=== PATIENT | male | born 1985 | race Caucasian/White ===

== ENCOUNTER 2020-06-28 07:35 | Day surgery (SDC) | payer BC ==
[~2020-06-28] VITALS: Ht 182.9 cm; Wt 73.9 kg
--- NOTE | ~2020-06-28 | O ---
[address] [address] OPERATIVE REPORT Name: JULIEN CHUNG Room #: 150-3 [facility] M.R.#: [id number] Admission: 06/28/20 Attend Phys: Asher Rodriguez MD Discharge: Date of : 85 Report #: [id number] THIS REPORT FOR: cc: Hipolito Johnson MD, Troy A. MD McCabe,Asher Aragon MD ~ DOC #: [id number] Asher Rodriguez MD DATE OF SERVICE: 06/28/2020 SERVICE: Orthopedics. FACILITY: [facility]. SURGEON: Asher Rodriguez MD CRIB ATTENDANT: Merle Houston NP PREOPERATIVE DIAGNOSES: 1. Right knee pain. 2. Right knee loose body. 3. Right knee lateral meniscus tear. POSTOPERATIVE DIAGNOSES: 1. Right knee pain. 2. Right knee loose body. 3. Right knee lateral meniscus tear. PROCEDURE PERFORMED: 1. Right knee arthroscopic loose body removal. 2. Right knee arthroscopic partial lateral meniscectomy. COMPLICATIONS: None. DRAINS: None. SPECIMENS: None. ANESTHESIA: General with regional. FINDINGS: 1. Intact medial compartment. 2. Mild chondromalacia of the patellofemoral joint with central partial thickness ridge that was in line with the large loose body located in the anterior aspect of the knee. 3. Large loose body approximately 22 x 12 mm in size with a secondary loose [address] [address] OPERATIVE REPORT Name: JULIEN CHUNG Room #: 150-3 [facility].#: [id number] Admission: 06/28/20 Attend Phys: Asher Rodriguez MD Discharge: Date of : 85 Report #: [id number] body approximately 7 x 5 mm in diameter removed from the anterior compartment of knee at the base of the anterior cruciate ligament. 4. Anterior horn lateral meniscus tear, treated with partial lateral meniscectomy after excision of the loose body. 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 The MRI indicated that this loose body was contained within the retropatellar fat pad, but in fact, at the time of arthroscopy was confirmed to be outside of the fat pad and was within the intra-articular space and was mobile. There was a small stalk of soft tissue attaching the loose body to the anterior horn of the meniscus. Because he had failed conservative measures, he was indicated for surgical treatment. Risks, benefits, alternatives and indications for surgery were discussed with him. Risks include but not limited to pain, bleeding, infection, injury to nerves or blood vessels, persistent pain despite surgical intervention, failure of any repair, progression of preexisting chondral injury, stiffness, need for further surgery as well as complications related to anesthesia. Despite the risks, he wished to proceed. PROCEDURE IN DETAIL: After right lower extremity was correctly identified as the operative extremity, the patient was taken to the operating room where general anesthesia was induced without complications. He was padded appropriately. Prophylactic antibiotics were administered at appropriate time. Tourniquet was applied to right leg. Right lower extremity was then prepped and draped in standard sterile fashion. A timeout procedure was performed. Esmarch were used, tourniquet inflated to 250 mmHg. Standard anterolateral viewing portal was established followed by an anteromedial working portal. Diagnostic arthroscopy was performed. The above findings were noted. There was no chondroplasty required to the patellofemoral joint. There was some synovitis anteriorly. This was resected with a shaver. The loose body was easily visualized. Upon placement of the knee into the anterior compartment of the knee. Anteromedial portal was established in a typical fashion. The medial compartment was normal. The meniscus was stable. There was no articular cartilage pathology. The biter and the shaver were used to dissect the soft tissue stalk off of the loose body where it adhered to the base of the ACL graft, which was intact as well as the anterior horn of his lateral meniscus. After this was completed, a grasper was used to remove the loose body in 1 piece and the medial incision was enlarged to allow delivery of the loose body. There was a secondary loose body more posterior and this was removed second and then we proceeded with debridement of the tissue in its location. The anterior horn of the lateral meniscus was attaching in just directly below the loose body and there was fraying and involvement of the root attachment anteriorly. The shaver was used to complete the partial lateral meniscectomy as well as a backbiter. The root attachment was stable otherwise. The majority of the root was affixed [address] [address] OPERATIVE REPORT Name: JULIEN CHUNG Room #: 150-3 [facility] M.R.#: [id number] Admission: 06/28/20 Attend Phys: Asher Rodriguez MD Discharge: Date of : 85 Report #: [id number] and so there was no need for any surgical repair. The meniscal debris was lavaged out the knee. We completed the diagnostic assessment of the lateral compartment and then lavaged all debris out of the knee and then drained the arthroscopic effusion. Instruments were removed. The portal sites were closed. Sterile dressing was applied. The larger anteromedial incision was closed with a deep stitch and both were closed with a superficial stitch prior to placement of the sterile dressing. Compression hose were applied and the patient was awakened from anesthesia and taken to recovery room in stable condition, no complications and all counts were recorded as correct. Asher Rodriguez MD MPM/STD By: 1034 1114 Asher Rodriguez MD /nt
[~2020-06-28 07:35] MED LIST: CBD PO; CELEXA20 MG PO; IBUPROFEN200 M1 PO; MULTI VITAMIN1 EACH PO; ZYRTEC10 M5 PO
[2020-06-28 08:37] LABS: HEMATOCRIT 38.9 % (42.0-52.0); HEMOGLOBIN 12.9 gm/dL (14.0-18.0); MCH 30.8 pg (26.0-34.0); MCHC 33.1 g/dL (28.0-37.0); RBC 4.19 mil/uL (4.50-6.00); RDW 13.4 % (10.5-14.5); WBC 3.5 thou/uL (4.0-11.0)
[2020-06-28 09:31] VITALS: BP 149/69
--- NOTE | 2020-06-28 11:29 | O ---
[facility] [address] [place] [address] OPERATIVE REPORT Name: JULIEN CHUNG Room #: 150-3 [facility] M.R.#: [id number] Admission: 06/28/20 Attend Phys: Asher Rodriguez MD Discharge: Date of : 85 Report #: [id number] THIS REPORT FOR: cc: Hipolito Johnson MD, Troy A. MD McCabe,Asher Aragon MD ~ DOC #: [id number] Asher Rodriguez MD DATE OF SERVICE: 06/28/2020 No Dictation. Asher Rodriguez MD [facility] <ELECTRONICALLY SIGNED> By: Asher Rodriguez MD 06/28/20 1129 [id number] Asher Rodriguez MD /nt
== END 2020-06-28 12:20 | disposition home or self-care (01) ==
LOC: OR 07:35 → TBA 07:41 → OR 09:14
PROVIDERS: ATTEND Orthopaedic Surgery Sports Medicine
DX: M25.561 Pain in right knee (principal); S83.281A Other tear of lateral meniscus, current injury, right knee, initial encounter; M23.41 Loose body in knee, right knee; M94.261 Chondromalacia, right knee; I10 Essential (primary) hypertension; F41.9 Anxiety disorder, unspecified; F31.9 Bipolar disorder, unspecified; D64.9 Anemia, unspecified; Z98.890 Other specified postprocedural states; Z20.822 Contact with and (suspected) exposure to COVID-19; Z87.891 Personal history of nicotine dependence; Z79.899 Other long term (current) drug therapy; X58.XXXA Exposure to other specified factors, initial encounter; Y93.89 Activity, other specified; Y92.89 Other specified places as the place of occurrence of the external cause; Y99.8 Other external cause status
CPT/HCPCS: 50010; 50101; 50405; 56527; 57103; 57180; 58589; 58680; 62110; 62900; 70005